=== PATIENT | female | born 1965 | race Caucasian/White ===

== ENCOUNTER 2023-05-07 13:26 | Inpatient (IN) | payer OTHER ==
[~2023-05-07] VITALS: Ht 165.1 cm; Wt 86.2 kg
[2023-05-07] MEDS ORDERED: ROSU10TA2 PO (14:04)
[2023-05-07] MEDS ORDERED: LOSA50TA39 PO (14:04)
[2023-05-07] MEDS ORDERED: CLOP75TA33 PO (14:04)
[2023-05-07] MEDS ORDERED: GLIP5TAB13 PO (14:04)
[2023-05-07] MEDS ORDERED: CARV6.252 PO (14:04)
[2023-05-07] MEDS ORDERED: METF-440 PO (14:04)
[2023-05-07] MEDS ORDERED: ASPI81TA31 PO (14:04)
[2023-05-07 14:07] LABS: BASOPHILS # (AUTO) 0.1 K/UL (0.0-0.2); BASOPHILS % (AUTO) 2.5 % (0.0-2.0); EOSINOPHILS # (AUTO) 0.1 K/uL (0.0-0.7); EOSINOPHILS % (AUTO) 2.5 % (0.0-7.0); HEMATOCRIT 40.7 % (31.2-41.9); HEMOGLOBIN 14.1 g/dL (10.9-14.3); LYMPHOCYTES # (AUTO) 1.3 K/uL (0.8-4.8); LYMPHOCYTES % (AUTO) 23.7 % (20.5-51.5); MEAN CORPUSCULAR HGB CONC 35 g/dL (32.3-35.6); MEAN CORPUSCULAR VOLUME 89.7 fL (75.5-95.3); MONOCYTES # (AUTO) 0.5 K/uL (0.1-1.30); MONOCYTES % (AUTO) 9.8 % (0.0-11.0); NEUTROPHILS # (AUTO) 3.3 K/uL (1.8-8.9); NEUTROPHILS % (AUTO) 61.5 % (38.5-71.5); PLATELET COUNT (AUTO) 287 K/uL (179-408); RED BLOOD CELL COUNT(AUTO) 4.53 MIL/uL (3.63-4.92); RED CELL DISTRIBUTION WIDTH 13.4 % (12.3-17.7); WHITE BLOOD COUNT (AUTO) 5.4 K/uL (3.8-11.8)
[2023-05-07 14:11] LABS: DIFFERENTIAL COMMENT 1
[2023-05-07 14:22] LABS: ALBUMIN 3.5 g/dL (3.4-5.0); BILIRUBIN,DIRECT 0.1 mg/dL (0.0-0.2); BILIRUBIN,TOTAL 0.5 mg/dL (0.2-1.0); CALCIUM 9.1 mg/dL (8.5-10.1); CREATININE 0.7 mg/dL (0.6-1.3); POTASSIUM 3.4 mmol/L (3.5-5.1); TOTAL PROTEIN, SERUM 7.4 g/dL (6.4-8.2)
[2023-05-07] MEDS ORDERED: ACETAMINOPHEN 325 MG TABLET PO ONE (15:30)
[2023-05-07] MEDS ORDERED: DIAZEPAM 2 MG TABLET PO ONE (18:00)
[2023-05-07] MEDS ORDERED: DIAZEPAM 2 MG TABLET ONE (18:30)
[2023-05-07] MEDS ORDERED: MORPHINE SULFATE 2 MG/1 ML DISP.SYRIN IV ONE (20:00)
[2023-05-07] MEDS ORDERED: LORAZEPAM 2 MG/1 ML VIAL IV ONE (20:00)
[2023-05-07] MEDS ORDERED: LORAZEPAM 2 MG/1 ML VIAL ONE (20:01)
[2023-05-07] MEDS ORDERED: MORPHINE SULFATE 2 MG/1 ML DISP.SYRIN ONE (20:01)
[2023-05-07] MEDS ORDERED: ONDANSETRON 4 MG/2 ML VIAL ONE (20:08)
[2023-05-07 20:30] VITALS: BP 151/73; TEMP 97.8; O2SAT 96
[2023-05-07] MEDS ORDERED: ONDANSETRON 4 MG/2 ML VIAL IV ONE (20:30)
[2023-05-07] MEDS ORDERED: TEMAZEPAM 15 MG CAPSULE PO PRN (21:00)
[2023-05-07] MEDS ORDERED: ACETAMINOPHEN 325 MG TABLET PO PRN (21:00)
[2023-05-07] MEDS ORDERED: MAGNESIUM HYDROXIDE 30 ML LIQUID UDC PO PRN (21:00)
[2023-05-07] MEDS: CARVEDILOL 6.25 MG TABLET PO SCH (21:46)
[2023-05-07] MEDS: DOCUSATE SODIUM 100 MG CAPSULE PO SCH (21:46)
[2023-05-08] VITALS: BP 110/55; TEMP 98.2; O2SAT 96
[2023-05-08 04:00] VITALS: BP 100/61; TEMP 97.9; O2SAT 98
[2023-05-08] MEDS: PANTOPRAZOLE SODIUM 40 MG TABLET.DR PO SCH (06:28)
[2023-05-08 06:39] LABS: BASOPHILS % (AUTO) 0.4 % (0.0-2.0); EOSINOPHILS # (AUTO) 0.1 K/uL (0.0-0.7); EOSINOPHILS % (AUTO) 2.4 % (0.0-7.0); HEMATOCRIT 35.9 % (31.2-41.9); HEMOGLOBIN 12.6 g/dL (10.9-14.3); LYMPHOCYTES # (AUTO) 2.3 K/uL (0.8-4.8); MEAN CORPUSCULAR HEMOGLOBIN 31.6 uug (24.7-32.8); MEAN CORPUSCULAR HGB CONC 35 g/dL (32.3-35.6); MEAN CORPUSCULAR VOLUME 89.8 fL (75.5-95.3); MONOCYTES # (AUTO) 0.7 K/uL (0.1-1.30); MONOCYTES % (AUTO) 12.5 % (0.0-11.0); NEUTROPHILS # (AUTO) 2.2 K/uL (1.8-8.9); NEUTROPHILS % (AUTO) 41.7 % (38.5-71.5); PLATELET COUNT (AUTO) 243 K/uL (179-408); RED BLOOD CELL COUNT(AUTO) 3.99 MIL/uL (3.63-4.92); RED CELL DISTRIBUTION WIDTH 13.1 % (12.3-17.7); WHITE BLOOD COUNT (AUTO) 5.3 K/uL (3.8-11.8)
[2023-05-08 06:52] LABS: DIFFERENTIAL COMMENT 1
[2023-05-08 07:07] LABS: THYROID STIMULATING HORMONE 0.569 mIU/mL (0.358-3.740)
[2023-05-08] MEDS ORDERED: glipiZIDE 5 MG TABLET PO SCH (07:30)
[2023-05-08 07:36] LABS: BILIRUBIN,TOTAL 0.4 mg/dL (0.2-1.0); CALCIUM 8.6 mg/dL (8.5-10.1); CREATININE 0.7 mg/dL (0.6-1.3); PHOSPHOROUS 4.9 mg/dL (2.5-4.9); POTASSIUM 3.7 mmol/L (3.5-5.1); TOTAL PROTEIN, SERUM 6.2 g/dL (6.4-8.2)
[2023-05-08] MEDS ORDERED: METFORMIN HCL 500 MG TABLET PO SCH (08:00)
[2023-05-08 08:50] VITALS: BP 122/55; TEMP 97.6; O2SAT 96
[2023-05-08] MEDS: ASPIRIN 81 MG TAB.CHEW PO SCH (09:05)
[2023-05-08] MEDS: CARVEDILOL 6.25 MG TABLET PO SCH ×2 (09:05→16:37)
[2023-05-08] MEDS: LOSARTAN POTASSIUM 50 MG TABLET PO SCH (09:06)
[2023-05-08] MEDS: CLOPIDOGREL 75 MG TABLET PO SCH (09:06)
[2023-05-08 11:43] VITALS: BP 123/67; TEMP 98.6; O2SAT 97
[2023-05-08] MEDS: CYANOCOBALAMIN 1000 MCG/ML VIAL IM SCH (13:30)
[2023-05-08 13:46] LABS: C-REACTIVE PROTEIN 0.18 mg/dL (0.00-0.30)
[2023-05-08 15:43] VITALS: BP 112/61; TEMP 98.6; O2SAT 98
[2023-05-08] MEDS: DIAZEPAM 5 MG TABLET PO PRN (16:37)
[2023-05-08] MEDS: IV LACTATED RINGERS SOLUTION 1,000 ML BAG IV PRN (16:41)
[2023-05-08] MEDS: GABAPENTIN 300 MG CAPSULE PO SCH (18:07)
[2023-05-08] MEDS: HYDROCODONE/APAP 5-325MG TABLET PO PRN (18:08)
[2023-05-08] MEDS: ONDANSETRON 4 MG/2 ML VIAL IV PRN (18:09)
[2023-05-08] MEDS: DOCUSATE SODIUM 100 MG CAPSULE PO SCH (20:29)
[2023-05-08] MEDS ORDERED: ATORVASTATIN 20 MG TABLET PO SCH (21:00)
[2023-05-08 21:20] VITALS: BP 108/63; TEMP 98.6; O2SAT 98
[2023-05-09 02:16] VITALS: BP 111/60; TEMP 98; O2SAT 89
[2023-05-09] MEDS: DIAZEPAM 5 MG TABLET PO PRN ×2 (02:25→17:05)
[2023-05-09] MEDS: ONDANSETRON 4 MG/2 ML VIAL IV PRN ×2 (02:25→17:06)
[2023-05-09] MEDS: IV LACTATED RINGERS SOLUTION 1,000 ML BAG IV PRN (04:22)
[2023-05-09 04:51] VITALS: BP 112/50; TEMP 98.2; O2SAT 96
[2023-05-09 05:59] LABS: BASOPHILS % (AUTO) 0.4 % (0.0-2.0); EOSINOPHILS # (AUTO) 0.4 K/uL (0.0-0.7); EOSINOPHILS % (AUTO) 6.9 % (0.0-7.0); HEMATOCRIT 35.2 % (31.2-41.9); HEMOGLOBIN 12.2 g/dL (10.9-14.3); LYMPHOCYTES # (AUTO) 1.8 K/uL (0.8-4.8); LYMPHOCYTES % (AUTO) 34.2 % (20.5-51.5); MEAN CORPUSCULAR HEMOGLOBIN 31.4 uug (24.7-32.8); MEAN CORPUSCULAR HGB CONC 35 g/dL (32.3-35.6); MEAN CORPUSCULAR VOLUME 90.4 fL (75.5-95.3); MONOCYTES # (AUTO) 0.6 K/uL (0.1-1.30); MONOCYTES % (AUTO) 11.1 % (0.0-11.0); NEUTROPHILS # (AUTO) 2.5 K/uL (1.8-8.9); NEUTROPHILS % (AUTO) 47.4 % (38.5-71.5); PLATELET COUNT (AUTO) 218 K/uL (179-408); RED CELL DISTRIBUTION WIDTH 13.7 % (12.3-17.7); WHITE BLOOD COUNT (AUTO) 5.3 K/uL (3.8-11.8)
[2023-05-09 06:02] LABS: DIFFERENTIAL COMMENT 1
[2023-05-09 06:16] LABS: CALCIUM 8.4 mg/dL (8.5-10.1); CREATININE 0.7 mg/dL (0.6-1.3); PHOSPHOROUS 4.4 mg/dL (2.5-4.9); POTASSIUM 3.7 mmol/L (3.5-5.1)
[2023-05-09] MEDS: PANTOPRAZOLE SODIUM 40 MG TABLET.DR PO SCH (06:16)
[2023-05-09] MEDS: CARVEDILOL 6.25 MG TABLET PO SCH ×2 (09:00→16:08)
[2023-05-09] MEDS: LOSARTAN POTASSIUM 50 MG TABLET PO SCH (09:00)
[2023-05-09] MEDS: ASPIRIN 81 MG TAB.CHEW PO SCH (09:43)
[2023-05-09] MEDS: CYANOCOBALAMIN 1000 MCG/ML VIAL IM SCH (09:43)
[2023-05-09] MEDS: GABAPENTIN 300 MG CAPSULE PO SCH (09:43)
[2023-05-09] MEDS: CLOPIDOGREL 75 MG TABLET PO SCH (09:44)
[2023-05-09 10:07] LABS: *ANTI-SCLERODERMA-70 AB <0.2 AI (0.0-0.9); *RNP ANTIBODIES 0.2 AI (0.0-0.9); *SJOGREN'S ANTI-SS-A <0.2 AI (0.0-0.9); *SJOGREN'S ANTI-SS-B <0.2 AI (0.0-0.9); *SMITH ANTIBODIES <0.2 AI (0.0-0.9); ANTI-DNA(DS) AB, QN <1 IU/mL (0-9); ANTI-NUCLEAR AB DIRECT Negative (Negative)
[2023-05-09 11:30] VITALS: BP 112/67; TEMP 98.5; O2SAT 99
[2023-05-09] MEDS ORDERED: ALPRAZOLAM 0.5 MG TABLET PO PRN (11:45)
[2023-05-09 12:52] VITALS: BP 112/67; TEMP 98.5; O2SAT 99
[2023-05-09 16:00] VITALS: BP 137/77; TEMP 98.8; O2SAT 98
[2023-05-09 20:00] VITALS: BP 148/68; TEMP 98.5; O2SAT 97
[2023-05-09] MEDS: DOCUSATE SODIUM 100 MG CAPSULE PO SCH (20:32)
[2023-05-09] MEDS: HYDROCODONE/APAP 5-325MG TABLET PO PRN (20:34)
[2023-05-09 21:24] LABS: *BILIRUBIN,URIN NEGATIVE (NEGATIVE); *CLARITY,URINE CLEAR (CLEAR); *COLOR,URINE YELLOW (YELLOW); *KETONES,URINE NEGATIVE (NEGATIVE); *PROTEIN,URINE NEGATIVE (NEGATIVE); *UROBILINOGEN,URINE 0.2 E.U./dl (NORMAL); LEUKOCYTE ESTERASE ,URINE 2+ (NEGATIVE); NITRITE, URINE POSITIVE (NEGATIVE); PH,URINE 7.5 (5.0-8.0); UGLUCOSE NEGATIVE (NEGATIVE)
[2023-05-09 21:25] LABS: *BLOOD, URINE NEGATIVE (NEGATIVE); BACTERIA,URINE FEW /HPF (NONE SEEN); RBC,URINE 0-3 /HPF (0-3)
[2023-05-10 04:00] VITALS: BP 92/54; TEMP 97.6; O2SAT 98
[2023-05-10] MEDS: DIAZEPAM 5 MG TABLET PO PRN (04:03)
[2023-05-10] MEDS: ONDANSETRON 4 MG/2 ML VIAL IV PRN ×2 (04:06→20:12)
[2023-05-10] MEDS: PANTOPRAZOLE SODIUM 40 MG TABLET.DR PO SCH (06:16)
[2023-05-10 07:39] LABS: BASOPHILS % (AUTO) 0.2 % (0.0-2.0); EOSINOPHILS # (AUTO) 0.3 K/uL (0.0-0.7); EOSINOPHILS % (AUTO) 3.9 % (0.0-7.0); HEMATOCRIT 36.1 % (31.2-41.9); LYMPHOCYTES # (AUTO) 2.1 K/uL (0.8-4.8); LYMPHOCYTES % (AUTO) 27.4 % (20.5-51.5); MEAN CORPUSCULAR HEMOGLOBIN 32.8 uug (24.7-32.8); MEAN CORPUSCULAR HGB CONC 36 g/dL (32.3-35.6); MONOCYTES # (AUTO) 0.8 K/uL (0.1-1.30); MONOCYTES % (AUTO) 10.6 % (0.0-11.0); NEUTROPHILS # (AUTO) 4.4 K/uL (1.8-8.9); NEUTROPHILS % (AUTO) 57.9 % (38.5-71.5); PLATELET COUNT (AUTO) 204 K/uL (179-408); RED BLOOD CELL COUNT(AUTO) 3.96 MIL/uL (3.63-4.92); RED CELL DISTRIBUTION WIDTH 13.6 % (12.3-17.7); WHITE BLOOD COUNT (AUTO) 7.7 K/uL (3.8-11.8)
[2023-05-10 07:51] LABS: DIFFERENTIAL COMMENT 1
[2023-05-10 07:52] LABS: CALCIUM 8.6 mg/dL (8.5-10.1); CREATININE 0.7 mg/dL (0.6-1.3); MAGNESIUM 2.2 mg/dL (1.8-2.4); PHOSPHOROUS 4.8 mg/dL (2.5-4.9)
[2023-05-10] MEDS: CYANOCOBALAMIN 1000 MCG/ML VIAL IM SCH (08:45)
[2023-05-10] MEDS: GABAPENTIN 300 MG CAPSULE PO SCH (08:45)
[2023-05-10] MEDS: CLOPIDOGREL 75 MG TABLET PO SCH (08:45)
[2023-05-10] MEDS: ASPIRIN 81 MG TAB.CHEW PO SCH (08:45)
[2023-05-10] MEDS: LOSARTAN POTASSIUM 50 MG TABLET PO SCH (08:46)
[2023-05-10] MEDS: CARVEDILOL 6.25 MG TABLET PO SCH ×2 (08:46→17:50)
[2023-05-10 11:30] VITALS: BP 113/61; TEMP 98.8; O2SAT 99
[2023-05-10 15:33] VITALS: BP 117/50; TEMP 98.6; O2SAT 96
[2023-05-10 20:00] VITALS: BP 113/62; TEMP 98.7; O2SAT 96
[2023-05-10] MEDS: DOCUSATE SODIUM 100 MG CAPSULE PO SCH (20:11)
[2023-05-10] MEDS: HYDROCODONE/APAP 5-325MG TABLET PO PRN (20:12)
[2023-05-11 04:00] VITALS: BP 114/58; TEMP 98; O2SAT 100
[2023-05-11] MEDS: TIZANIDINE HCL 4 MG TABLET PO PRN (04:56)
[2023-05-11] MEDS: ONDANSETRON 4 MG/2 ML VIAL IV PRN ×2 (04:57→20:18)
[2023-05-11] MEDS: PANTOPRAZOLE SODIUM 40 MG TABLET.DR PO SCH (06:07)
[2023-05-11 06:30] LABS: BASOPHILS % (AUTO) 0.6 % (0.0-2.0); EOSINOPHILS # (AUTO) 0.2 K/uL (0.0-0.7); EOSINOPHILS % (AUTO) 3.8 % (0.0-7.0); HEMATOCRIT 35.4 % (31.2-41.9); HEMOGLOBIN 12.5 g/dL (10.9-14.3); LYMPHOCYTES # (AUTO) 1.9 K/uL (0.8-4.8); LYMPHOCYTES % (AUTO) 34.4 % (20.5-51.5); MEAN CORPUSCULAR HEMOGLOBIN 31.8 uug (24.7-32.8); MEAN CORPUSCULAR HGB CONC 35 g/dL (32.3-35.6); MEAN CORPUSCULAR VOLUME 90.3 fL (75.5-95.3); MONOCYTES # (AUTO) 0.7 K/uL (0.1-1.30); MONOCYTES % (AUTO) 13.2 % (0.0-11.0); NEUTROPHILS # (AUTO) 2.6 K/uL (1.8-8.9); PLATELET COUNT (AUTO) 202 K/uL (179-408); RED BLOOD CELL COUNT(AUTO) 3.92 MIL/uL (3.63-4.92); RED CELL DISTRIBUTION WIDTH 13.3 % (12.3-17.7); WHITE BLOOD COUNT (AUTO) 5.5 K/uL (3.8-11.8)
[2023-05-11 06:59] LABS: DIFFERENTIAL COMMENT 1
[2023-05-11 07:13] LABS: CALCIUM 8.9 mg/dL (8.5-10.1); CREATININE 0.6 mg/dL (0.6-1.3); MAGNESIUM 1.9 mg/dL (1.8-2.4); PHOSPHOROUS 4.3 mg/dL (2.5-4.9); POTASSIUM 4.1 mmol/L (3.5-5.1)
[2023-05-11] MEDS: LOSARTAN POTASSIUM 50 MG TABLET PO SCH (09:00)
[2023-05-11] MEDS: CLOPIDOGREL 75 MG TABLET PO SCH (09:12)
[2023-05-11] MEDS: CYANOCOBALAMIN 1000 MCG/ML VIAL IM SCH (09:12)
[2023-05-11] MEDS: ASPIRIN 81 MG TAB.CHEW PO SCH (09:12)
[2023-05-11] MEDS: GABAPENTIN 300 MG CAPSULE PO SCH (09:12)
[2023-05-11] MEDS: CARVEDILOL 6.25 MG TABLET PO SCH ×2 (09:13→16:36)
[2023-05-11] MEDS ORDERED: ALPRAZOLAM 0.5 MG TABLET PO PRN (09:45)
[2023-05-11] MEDS: HYDROCODONE/APAP 5-325MG TABLET PO PRN ×2 (09:46→20:18)
[2023-05-11 15:42] VITALS: BP 138/80; TEMP 97.6; O2SAT 100
[2023-05-11] MEDS: DOCUSATE SODIUM 100 MG CAPSULE PO SCH (20:18)
[2023-05-11 20:43] VITALS: BP 102/42; TEMP 97.7; O2SAT 98
[2023-05-12] MEDS: PANTOPRAZOLE SODIUM 40 MG TABLET.DR PO SCH (06:05)
[2023-05-12 06:47] VITALS: BP 105/49; TEMP 97.8; O2SAT 100
[2023-05-12 08:00] VITALS: BP 143/75; TEMP 98.5; O2SAT 98
[2023-05-12] MEDS: CYANOCOBALAMIN 1000 MCG/ML VIAL IM SCH (08:54)
[2023-05-12] MEDS: ASPIRIN 81 MG TAB.CHEW PO SCH (08:54)
[2023-05-12] MEDS: TIZANIDINE HCL 4 MG TABLET PO PRN (08:54)
[2023-05-12] MEDS: CLOPIDOGREL 75 MG TABLET PO SCH (08:54)
[2023-05-12] MEDS: LOSARTAN POTASSIUM 50 MG TABLET PO SCH (08:57)
[2023-05-12] MEDS: GABAPENTIN 300 MG CAPSULE PO SCH (08:57)
[2023-05-12] MEDS: CARVEDILOL 6.25 MG TABLET PO SCH ×2 (08:58→17:00)
[2023-05-12 11:00] VITALS: BP 90/46; TEMP 98.2; O2SAT 96
[2023-05-12 16:00] VITALS: BP 100/55; TEMP 98.2; O2SAT 96
[2023-05-12 20:01] VITALS: BP 110/55; TEMP 97.9; O2SAT 99
[2023-05-12] MEDS: DOCUSATE SODIUM 100 MG CAPSULE PO SCH (20:32)
[2023-05-12] MEDS: ONDANSETRON 4 MG/2 ML VIAL IV PRN (20:32)
[2023-05-12] MEDS: HYDROCODONE/APAP 5-325MG TABLET PO PRN (20:32)
[2023-05-13 05:04] VITALS: BP 110/47; TEMP 97.8; O2SAT 97
[2023-05-13] MEDS: TIZANIDINE HCL 4 MG TABLET PO PRN ×2 (05:05→14:14)
[2023-05-13] MEDS: PANTOPRAZOLE SODIUM 40 MG TABLET.DR PO SCH (06:04)
[2023-05-13 08:20] VITALS: BP 114/63; TEMP 98.3; O2SAT 98
[2023-05-13] MEDS: CEFTRIAXONE 1 G in IV DEXTROSE 5% 50 ML IV SCH (08:22)
[2023-05-13] MEDS: GABAPENTIN 300 MG CAPSULE PO SCH (08:22)
[2023-05-13] MEDS: ASPIRIN 81 MG TAB.CHEW PO SCH (08:22)
[2023-05-13] MEDS: CYANOCOBALAMIN 1000 MCG/ML VIAL IM SCH (08:22)
[2023-05-13] MEDS: LOSARTAN POTASSIUM 50 MG TABLET PO SCH (08:22)
[2023-05-13] MEDS: CLOPIDOGREL 75 MG TABLET PO SCH (08:22)
[2023-05-13] MEDS: CARVEDILOL 6.25 MG TABLET PO SCH ×2 (08:23→16:38)
[2023-05-13 11:30] VITALS: BP 112/63; TEMP 97.9; O2SAT 100
[2023-05-13 16:28] VITALS: BP 131/64; TEMP 98.3; O2SAT 97
[2023-05-13 20:00] VITALS: BP 100/58; TEMP 98.4; O2SAT 99
[2023-05-13] MEDS: ONDANSETRON 4 MG/2 ML VIAL IV PRN (20:31)
[2023-05-13] MEDS: HYDROCODONE/APAP 5-325MG TABLET PO PRN (20:31)
[2023-05-13] MEDS: DOCUSATE SODIUM 100 MG CAPSULE PO SCH (20:31)
[2023-05-14 04:00] VITALS: BP 127/69; TEMP 98; O2SAT 97
[2023-05-14] MEDS: PANTOPRAZOLE SODIUM 40 MG TABLET.DR PO SCH (06:08)
[2023-05-14] MEDS: GABAPENTIN 300 MG CAPSULE PO SCH (08:57)
[2023-05-14] MEDS: LOSARTAN POTASSIUM 50 MG TABLET PO SCH (08:57)
[2023-05-14] MEDS: ASPIRIN 81 MG TAB.CHEW PO SCH (08:57)
[2023-05-14] MEDS: CYANOCOBALAMIN 1000 MCG/ML VIAL IM SCH (08:58)
[2023-05-14] MEDS: CARVEDILOL 6.25 MG TABLET PO SCH ×2 (08:58→17:16)
[2023-05-14] MEDS: CLOPIDOGREL 75 MG TABLET PO SCH (08:58)
[2023-05-14] MEDS: CEFTRIAXONE 1 G in IV DEXTROSE 5% 50 ML IV SCH (09:01)
[2023-05-14 11:10] VITALS: BP 125/54; TEMP 98.2; O2SAT 97
[2023-05-14 15:04] VITALS: BP 122/59; TEMP 98.1; O2SAT 94
[2023-05-14] MEDS: TIZANIDINE HCL 4 MG TABLET PO PRN (15:14)
[2023-05-14] MEDS: ONDANSETRON 4 MG/2 ML VIAL IV PRN (15:14)
[2023-05-14 20:48] VITALS: BP 103/52; TEMP 98.6; O2SAT 97
[2023-05-14] MEDS: DOCUSATE SODIUM 100 MG CAPSULE PO SCH (21:08)
[2023-05-14] MEDS: HYDROCODONE/APAP 5-325MG TABLET PO PRN (21:08)
[2023-05-15] MEDS: TIZANIDINE HCL 4 MG TABLET PO PRN (03:24)
[2023-05-15 05:08] VITALS: BP 119/60; TEMP 98; O2SAT 97
[2023-05-15] MEDS: PANTOPRAZOLE SODIUM 40 MG TABLET.DR PO SCH (06:41)
[2023-05-15] MEDS: CEFTRIAXONE 1 G in IV DEXTROSE 5% 50 ML IV SCH (09:04)
[2023-05-15] MEDS: CLOPIDOGREL 75 MG TABLET PO SCH (09:06)
[2023-05-15] MEDS: ASPIRIN 81 MG TAB.CHEW PO SCH (09:06)
[2023-05-15] MEDS: CYANOCOBALAMIN 1000 MCG/ML VIAL IM SCH (09:06)
[2023-05-15] MEDS: GABAPENTIN 300 MG CAPSULE PO SCH (09:06)
[2023-05-15] MEDS: DIAZEPAM 5 MG TABLET PO PRN (09:10)
[2023-05-15] MEDS: LOSARTAN POTASSIUM 50 MG TABLET PO SCH (09:11)
[2023-05-15] MEDS: CARVEDILOL 6.25 MG TABLET PO SCH ×2 (09:11→16:53)
[2023-05-15] MEDS: ONDANSETRON 4 MG/2 ML VIAL IV PRN ×2 (09:20→21:56)
[2023-05-15] MEDS: AMMONIUM LACTATE 12% LOTION 225 GM BOTTLE TP SCH ×2 (10:48→16:53)
[2023-05-15 11:30] VITALS: BP 107/47; TEMP 98.5; O2SAT 97
[2023-05-15 16:00] VITALS: BP 111/55; TEMP 98.6; O2SAT 95
[2023-05-15 20:30] VITALS: BP 104/55; TEMP 97.8; O2SAT 100
[2023-05-15] MEDS: HYDROCODONE/APAP 5-325MG TABLET PO PRN (21:55)
[2023-05-15] MEDS: DOCUSATE SODIUM 100 MG CAPSULE PO SCH (21:57)
[2023-05-16] MEDS: PANTOPRAZOLE SODIUM 40 MG TABLET.DR PO SCH (06:10)
[2023-05-16 06:37] VITALS: BP 116/38; TEMP 97.7; O2SAT 97
[2023-05-16] MEDS: CEFTRIAXONE 1 G in IV DEXTROSE 5% 50 ML IV SCH (08:21)
[2023-05-16] MEDS: GABAPENTIN 300 MG CAPSULE PO SCH (08:21)
[2023-05-16] MEDS: ASPIRIN 81 MG TAB.CHEW PO SCH (08:21)
[2023-05-16] MEDS: LOSARTAN POTASSIUM 50 MG TABLET PO SCH (08:22)
[2023-05-16] MEDS: CARVEDILOL 6.25 MG TABLET PO SCH ×2 (08:22→17:00)
[2023-05-16] MEDS: CLOPIDOGREL 75 MG TABLET PO SCH (08:22)
[2023-05-16] MEDS: AMMONIUM LACTATE 12% LOTION 225 GM BOTTLE TP SCH ×2 (08:26→17:34)
[2023-05-16 11:14] VITALS: BP 129/66; TEMP 98.2; O2SAT 96
[2023-05-16 15:50] VITALS: BP 91/45; TEMP 99; O2SAT 97
[2023-05-16] MEDS: TIZANIDINE HCL 4 MG TABLET PO PRN (17:35)
[2023-05-16 20:00] VITALS: BP 121/65; TEMP 98.2; O2SAT 96
[2023-05-16] MEDS: DOCUSATE SODIUM 100 MG CAPSULE PO SCH (22:04)
[2023-05-17] MEDS: HYDROCODONE/APAP 5-325MG TABLET PO PRN ×3 (00:58→18:53)
[2023-05-17 01:06] LABS: CANCER AG, 125 7.4 U/mL (0.0-38.1); CARBOHYDRATE ANTIGEN, 19-9 18 U/mL (0-35); CARCINOEMBRYONIC AG (CEA) <0.6 ng/mL (0.0-4.7)
[2023-05-17] MEDS: ONDANSETRON 4 MG/2 ML VIAL IV PRN ×3 (01:07→18:53)
[2023-05-17 04:00] VITALS: BP 119/61; TEMP 97.7; O2SAT 95
[2023-05-17] MEDS: PANTOPRAZOLE SODIUM 40 MG TABLET.DR PO SCH (06:50)
[2023-05-17] MEDS ORDERED: GLUCERNA SHAKE 237 ML CAN PO SCH (09:00)
[2023-05-17] MEDS: CLOPIDOGREL 75 MG TABLET PO SCH (09:21)
[2023-05-17] MEDS: ASPIRIN 81 MG TAB.CHEW PO SCH (09:21)
[2023-05-17] MEDS: GABAPENTIN 300 MG CAPSULE PO SCH (09:21)
[2023-05-17] MEDS: CARVEDILOL 6.25 MG TABLET PO SCH ×2 (09:22→17:52)
[2023-05-17] MEDS: LOSARTAN POTASSIUM 50 MG TABLET PO SCH (09:22)
[2023-05-17] MEDS: CEFTRIAXONE 1 G in IV DEXTROSE 5% 50 ML IV SCH (09:23)
[2023-05-17] MEDS: AMMONIUM LACTATE 12% LOTION 225 GM BOTTLE TP SCH ×2 (09:24→17:55)
[2023-05-17 11:36] VITALS: BP 118/50; TEMP 97.8; O2SAT 97
[2023-05-17 15:30] VITALS: BP 103/53; TEMP 97.8; O2SAT 96
[2023-05-17 17:52] VITALS: BP 103/53
[2023-05-17] MEDS: DOCUSATE SODIUM 100 MG CAPSULE PO SCH (21:21)
[2023-05-18] MEDS ORDERED: CEphaleXIN 500 MG CAPSULE PO SCH (09:00)
== END 2023-05-18 02:25 | disposition short-term general hospital (02) | DRG 57 ==
LOC: ER 13:32 → MEDSURG3 19:53 → TELE3 21:49 → MEDSURG3 05-09 09:20 → MED 05-17 15:53
PROVIDERS: ADMIT Internal Medicine; ATTEND Nurse Practitioner Acute Care
DX: G20.A1 Parkinson's disease without dyskinesia, without mention of fluctuations (principal); N39.0 Urinary tract infection, site not specified; M51.16 Intervertebral disc disorders with radiculopathy, lumbar region; M48.061 Spinal stenosis, lumbar region without neurogenic claudication; E88.09 Other disorders of plasma-protein metabolism, not elsewhere classified; I25.2 Old myocardial infarction; E78.5 Hyperlipidemia, unspecified; B96.20 Unspecified Escherichia coli [E. coli] as the cause of diseases classified elsewhere; I25.10 Atherosclerotic heart disease of native coronary artery without angina pectoris; Z95.5 Presence of coronary angioplasty implant and graft; S42.301S Unspecified fracture of shaft of humerus, right arm, sequela; S54 Injury of nerves at forearm level; X58.XXXS Exposure to other specified factors, sequela; R63.4 Abnormal weight loss; Z68.31 Body mass index [BMI] 31.0-31.9, adult; I10 Essential (primary) hypertension; E04.9 Nontoxic goiter, unspecified; K80.20 Calculus of gallbladder without cholecystitis without obstruction; M51.37 Other intervertebral disc degeneration, lumbosacral region; M16.0 Bilateral primary osteoarthritis of hip; F43.23 Adjustment disorder with mixed anxiety and depressed mood; G89.29 Other chronic pain; M62.50 Muscle wasting and atrophy, not elsewhere classified, unspecified site; M48.07 Spinal stenosis, lumbosacral region; N83.201 Unspecified ovarian cyst, right side; M40.204 Unspecified kyphosis, thoracic region; E11.40 Type 2 diabetes mellitus with diabetic neuropathy, unspecified; Z86.73 Personal history of transient ischemic attack (TIA), and cerebral infarction without residual deficits; Z79.899 Other long term (current) drug therapy; Z78.0 Asymptomatic menopausal state
CPT/HCPCS: 36415; 70030-TC; 70450; 70553; 72131; 72158; 73600; 76856; 76857; 82378; 83605; 83735; 84100; 84443; 85025; 85651; 86038; 86140; 86301; 93005; G0378; J0696; J2060; J2270; J2405; J3420; J7040; J7120